=== PATIENT | female | born 1970 | race Caucasian/White ===

== ENCOUNTER 2020-02-25 00:23 | Emergency (ER) | payer MEDICAID, SELFPAY ==
[2020-02-25 00:59] VITALS: BP 168/93; PULSE 92; RESP 18; TEMP 36.8; O2SAT 99; BMI 29.2
--- NOTE | 2020-02-25 01:31 | ED.DENTAL ---
HPI - Dental/Oral General Chief complaint: Dental/Oral Stated complaint: abscess Time Seen by Provider: 02/25/20 01:31 History of Present Illness HPI Narrative: patient complaining of 3 day swelling to the left lower jaw. There is no fever no chills. There is no difficulty speaking. No difficulty swallowing. No change in voice. Patient from home. Patient was given antibiotics by her dentist. Attempted at Duy the abscess to no avail. Patient came in because the pain continue. The swelling is unchanged. Duration: constant Severity: moderate Severity scale (1-10): 9 Relieving factors: nothing Exacerbating factors: nothing Related Data Previous Rx's Medication Instructions Recorded oxycodone-acetaminophen [Percocet] 1 tab PO Q6H PRN #7 tab 02/25/20 Allergies Allergy/AdvReac Type Severity Reaction Status Date / Time No Known Allergies Allergy Verified 02/25/20 01:05 Review of Systems Review of Systems: Constitutional: No Weight loss, No Fever, No Chills, No Night Sweats, No Fatigue, No Malaise ENT/Mouth: No Hearing loss, No Ear Pain, No Nasal Congestion, No Sinus Pain, No Hoarseness, No sore throat, No Rhinorrhea, No Swallowing Difficulty Eyes: No Eye Pain, No Swelling, No Redness, No Foreign Body, No Discharge, No Vision Changes Cardiovascular: No Chest Pain, No SOB, No Dyspnea on Exertion, No Orthopnea, No Edema, No Palpitations Respiratory: No Cough, No Sputum, No Wheezing, No Smoke Exposure, No Dyspnea Gastrointestinal: No Nausea, No Vomiting, No Diarrhea, No Constipation, No abdominal Pain, No Hematochezia, No Melena Genitourinary: no irregular bleeding, No Dysuria, No Urinary Frequency, No Hematuria, No Urinary Incontinence, No Urgency, No Flank Pain, No Urinary Flow Changes, No Hesitancy Musculoskeletal: No joint pain, No Myalgias, No Joint Swelling Skin: No Skin Lesions, No rash Neuro: No Weakness, No Numbness, No Paresthesias, No Loss of Consciousness, No Dizziness, No Headache Psych: No Anxiety/Panic, No Depression, No SI/HI/AH/VH, No Social Issues, Heme/Lymph: No Bruising, No Bleeding,No Lymphadenopathy Endocrine: No Polyuria, No Polydipsia, No Temperature Intolerance [facility] Past Medical History Medical History (Updated 02/25/20 @ 01:36 by Julee Vargas MD) Fibromyalgia Meningioma Thalassemia Physical Exam Vital Signs: Vital Signs: Vital Signs Temp Pulse Resp BP Pulse Ox 02/25/20 00:59 98.3 F 92 18 168/93 H 99 Body Mass Index 29.2 Appearance: Alert. Oriented X3. No acute distress. Eyes: Pupils equal, round and reactive to light. ENT: Pharynx normal , there is swelling next to the left lower jaw with fluctuance palpable. There is no swelling or tenderness in the soft palate. There is no erythema posteriorly. Tonsils are not enlarged. Posterior pharynx is normal. Patient speak with normal voice. Trachea is midline.. Neck: Normal inspection. Neck supple. No lymph nodes noted. No crepitus CVS: Normal heart rate and rhythm. Pulses normal. Normal S1 and S2 Respiratory: No respiratory distress. Breath sounds normal. No Wheezing. No rales Abdomen: Soft and nontender. No rigidity. No distention. good BS x4 Skin: Skin warm and dry. Normal skin color. Normal skin turgor. Extremities: No lower extremity edema. Neurovascular intact to all extremities. No Lacerations. No Rash Neuro: Oriented X 3. No motor deficit. No sensory deficit. Moving all extermities. No slurred speech MDM - Dental/Oral MDM Narrative Medical decision making narrative: Question dental abscess will give pain medication. Attempted to drain with 18 gauge needle to no avail. Will have patient follow-up with Dentistry on an outpatient basis. Currently in stable condition. There is no change in voice patient is able to swallow. Is already on antibiotic for 2 days. Differential Diagnosis Differential diagnosis: Likely dental abscess Lab Data Attestation: I reviewed the patient's lab results. Discharge Plan Discharge Clinical Impression: Dental abscess Patient Disposition: Home, Self-Care Instructions: Dental Abscess (ED) Additional Instructions: Thank you for visiting the emergency department today. If your symptoms worsen or do not resolve completely please return to the emergency department immediately or call 911. if he have any questions please call your primary care physician Prescriptions: New oxycodone-acetaminophen [Percocet] 5-325 mg tablet 1 tab PO Q6H PRN (Reason: pain) Qty: 7 RF: 0 Referrals: your, dentist [Other] - 2 days
[2020-02-25] MEDS: HYDROcodone Bit/Acetam 5/325 TABLET 1 TAB PO (01:53)
== END 2020-02-25 01:57 | disposition home or self-care (01) ==
LOC: HO.ED 01:51
PROVIDERS: Emergency Provider Emergency Medicine Emergency Medical Services; PCP Internal Medicine
DX: K04.7 Periapical abscess without sinus (principal)
CPT/HCPCS: 41800; 99283

== ENCOUNTER → 2021-04-04 12:57 | Outpatient (REF) | payer MEDICAID, SELFPAY ==
--- NOTE | 2021-04-04 13:04 | ECG_ITS ---
Hook-up date: 2021-04-04 13:15:00 Duration: 47:59:00 Test Indications: R55 SYNCOPE Medications: [id number] QRS complexes * Ventricular ectopics which represent % of total QRS comp. 39 Supraventricular ectopics which represent <1 % of total QRS comp. * Paced QRS complexs which represent % of total QRS comp. VENTRICULAR ECTOPY * Isolated * Bigeminal Cycles * Couplets * Runs * Beats in Runs * Beats LONGEST at * BPM at :: -- * Beats FASTEST at * BPM at :: -- SUPRAVENTRICULAR ECTOPY 39 Isolated 0 Couplets 0 Runs 0 Beats in Runs * Beats LONGEST at * BPM at :: -- * Beats FASTEST at * BPM at :: -- HEART RATES 60 MIN at 04:13:52 2021-04-05 85 AVG 131 MAX at 13:28:17 2021-04-04 LONGEST RR 1.0400 secs at 04:13:50 2021-04-05 S-T LEVELS Channel 1 - 128 mm at 13:15:00 2021-04-04 - 128 mm at 13:15:00 2021-04-04 Channel 2 - 128 mm at 13:15:00 2021-04-04 - 128 mm at 13:15:00 2021-04-04 Channel 3 - 128 mm at 03:23:41 -- - 128 mm at 03:23:41 Underlying rhtyhm is sinus. Average ventricular rate 85/min; range 60-131/min. Very rare supraventricular ectopy. No sustained arrhythmias. No significant pauses. No events in patient diary. Referred By: César Gomez Overread By: MARY WALDRON
== END ==
LOC: HO.CARD 12:57
PROVIDERS: Visit Provider Psychiatry & Neurology Neurology
DX: R55 Syncope and collapse (principal)
CPT/HCPCS: 93226

== ENCOUNTER 2021-05-29 12:45 | Outpatient (REF) | payer MEDICAID, SELFPAY ==
--- NOTE | 2021-05-29 12:45 | EEG_ITS ---
FINDINGS: The waking background activity consists of a well-defined posterior 10 to 11 hertz alpha frequency, intermixed anteriorly with low-voltage fast frequencies. Drowsiness is characterized by diffuse theta slowing. During sleep stages 1 through 4 sleep are noted with symmetrical frontal central sleep spindles and vertex sharp transients and delta sleep. Arousals are unremarkable. The patient remains asymptomatic. No focal, lateralizing, or paroxysmal discharges seen. IMPRESSION: This 24-hour ambulatory EEG is within normal limits. MD BERNABE Valencia/CHUCK / [phone]
== END 2021-05-29 12:46 | disposition home or self-care (01) ==
LOC: HO.NEURO 12:45
PROVIDERS: Visit Provider Psychiatry & Neurology Neurology
DX: R55 Syncope and collapse (principal)
CPT/HCPCS: 95708

== ENCOUNTER 2023-03-29 19:51 | Emergency (ER) | payer OTHER, SELFPAY ==
--- NOTE | ~2023-03-29 | XR_ITS ---
EXAMINATION: XR CHEST 2 VIEWS CLINICAL INFORMATION: Chest pain. COMPARISON: None available. TECHNIQUE: Frontal and lateral views of the chest were obtained. FINDINGS: The heart, great vessels, pulmonary vasculature and mediastinum are normal. The lungs show no focal infiltrate, effusion or pneumothorax. There is a tiny focus of linear scar/subsegmental atelectasis at the lateral left base. There is no acute osseous abnormality. There are upper abdominal surgical clips. XR/XR chest 2V IMPRESSION: 1. No focal infiltrate or congestive heart failure is seen. 2. There is a tiny focus of linear scar/subsegmental atelectasis at the lateral left base.
--- NOTE | 2023-03-29 19:53 | ED.GENADULT ---
HPI - General Adult General Chief complaint: Chest Pain Stated complaint: shoulder and chest pain , high BP Time Seen by Provider: 03/29/23 21:05 Source: patient Mode of arrival: ambulatory Limitations: no limitations History of Present Illness HPI narrative: Patient with no significant cardiac history in the past with history of pre diabetes and fibromyalgia, normal blood pressure comes here for 1 week of chest pain which is localized to left side and left arm and upper back patient dull lasting only for few minutes no chest pain during the sleep was seen at urgent care center and sent here on arrival patient is still complaining of chest pain which is going on for 1 week but without any significant distress saturating 100% on room air. Blood pressure on arrival was 160/87 with pulse rate of 77 repeat blood pressure was 148/89 Related Data Previous Rx's Medication Instructions Recorded oxycodone-acetaminophen 5 mg-325 1 tab PO Q6H PRN pain #7 tabs 02/25/20 mg tablet (Percocet) Allergies Allergy/AdvReac Type Severity Reaction Status Date / Time No Known Allergies Allergy Verified 02/25/20 01:05 Review of Systems Review of Systems: Yes all other systems are reviewed and are negative [facility] Past Medical History Medical History Thalassemia Fibromyalgia Meningioma Social History Social History Alcohol intake: never Smoked in Last 30 Days: Yes Use of substances other than those prescribed or required for medical reasons: No Advance Directives: No Advance Directives Information Provided: No Patient : No Physical Exam ED Vital Signs: Vital Signs - 24 hr 03/29/23 19:54 03/29/23 21:30 03/29/23 22:13 Temperature 97.7 F Pulse Rate 77 75 74 Respiratory Rate 18 11 L 17 Blood Pressure 160/87 H 157/92 H 148/89 H Pulse Oximetry 99 98 100 Oxygen Delivery Method Room Air Room Air Room Air BMI result Body Mass Index 28.8 Appearance: Alert. Oriented X3. No acute distress. Eyes: No pallor or icterus ENT: Pharynx normal. Oral Mucosa moist Neck: Normal inspection. Neck supple. CVS: Normal heart rate and rhythm. Pulses normal. No murmur or rub Respiratory: No respiratory distress. Equal air entry bilateral, no wheezing/rales/rhonchi left chest wall tenderness++ at 2nd intercostal space Abdomen: Soft and nontender. Bowel sounds are present, no mass palpable, no CVA tenderness Skin: Skin warm and dry. Normal skin color. Normal skin turgor. Extremities: No lower extremity edema. No calf tenderness Neuro: Oriented X 3. No motor deficit. Course Course Course Narrative: RME performed by Shala Guevara PA-C. Patient is a 52 year old assigned female at presenting to the emergency department with shoulder and left chest pain. Patient was seen at an urgent care earlier who called and informed me that the patient's EKG there showed a prolonged QT interval. Labs, imaging, and swabs ordered. Patient placed back in the waiting room pending room availability and results. Medications Administered Discontinued Medications Generic Name Dose Route Start Last Admin Trade Name Freq PRN Reason Stop Dose Admin Tramadol HCl 50 mg 03/29/23 21:48 03/29/23 22:00 Tramadol Hcl 50 Mg Tablet PO 03/29/23 21:49 Not Given ONCE ONE Medical Decision Making Medical Decision Making [facility] Narrative: Patient with atypical chest pain reproducible on palpation likely costochondritis with history of fibromyalgia and high sensitive troponin negative normal EKG low risk for PE discharge patient home on tramadol Differential Diagnosis Differential Diagnoses: The differential diagnosis associated with the presentation includes Musculoskeletal pain/costochondritis/ACS/pleural Admission/Observation Consideration of admission/observation: Escalation of care including admission/observation considered Lab Data [facility] Lab Attestation statement: I reviewed the patient's lab results. 03/29/23 20:08 03/29/23 20:08 Labs: Lab Results 03/29/23 Range/Units 20:08 WBC 7.1 (4.8-10.8) X10*3/uL RBC 5.83 H (4.20-5.50) X10*6/uL Hgb 11.2 L (12.0-16.0) g/dl Hct 36.6 L (37.0-47.0) % MCV 62.8 L (80.0-98.0) fL MCH 19.2 L (27.0-33.0) pg MCHC 30.6 L (31.0-35.0) g/dl RDW 15.9 (11.0-16.0) % Plt Count 391 (160-400) X10*3/uL MPV 9.9 (9.4-12.3) fL Immature Gran % (Auto) 0.3 (0.0-0.4) % Neut % (Auto) 62.6 (45-73) % Lymph % (Auto) 29.5 (20-40) % Rabun % (Auto) 4.5 (2-11) % Eos % (Auto) 2.0 (0-4) % Baso % (Auto) 1.1 (0-2) % Lymph # (Auto) 2.1 (1.2-4.9) X10*3/uL Rabun # (Auto) 0.3 (0.1-1.2) X10*3/uL Eos # (Auto) 0.1 (0.0-0.4) X10*3/uL Baso # (Auto) 0.1 (0.0-0.2) X10*3/uL Abs Immat Gran (auto) 0.02 (0.00-0.03) X10*3/uL Absolute Neuts (auto) 4.4 (2.0-8.3) x10*3/uL Absolute Nucleated RBC 0.000 (0.0-0.012) X10*3/uL Nucleated RBC % (auto) 0.0 (0.0-0.2) /100WBC PT 11.0 L (11.1-13.3) SEC INR 0.9 (0.9-1.1) APTT 31.3 (26.0-36.4) SEC Sodium 138 (135-145) mmol/L Potassium 3.6 (3.3-5.1) mmol/L Chloride 102 (96-108) mmol/L Carbon Dioxide 26 (22-29) mmol/L Anion Gap 14 (12-20) BUN 15 (9-16) mg/dL Creatinine 0.77 (0.5-1.4) mg/dL Estim Creat Clear Calc 91.7 Estimated GFR > 60 Random Glucose 170 H (60-115) mg/dL Calcium 9.2 (8.4-10.2) mg/dL Magnesium 1.8 (1.6-2.6) mg/dL Total Bilirubin 0.3 (0.0-1.0) mg/dL AST 14 (5-31) U/L ALT 9 (0-31) U/L Alkaline Phosphatase 81 (39-117) U/L Troponin I High Sens < 2.7 (<3.5-17.0) ng/L Total Protein 7.7 (6.5-8.0) g/dL Albumin 4.3 (3.5-5.0) g/dL Influenza Type A (PCR) NEGATIVE (Negative) Influenza Type B (PCR) NEGATIVE (Negative) RSV RNA Qual (PCR) NEGATIVE (Negative) SARS-CoV-2 RNA (RT-PCR) NEGATIVE (Negative) Independent Interpretation I performed an independent interpretation of an: EKG and Plain X-Ray Interpretation: Number sinus rhythm 175 beats per minute normal intervals normal axis no acute ST-T changes no acute ischemia Discharge Plan Discharge Clinical Impression: Atypical chest pain, Borderline blood pressure Patient Disposition: Home, Self-Care Instructions: Hypertension (ED), Noncardiac Chest Pain (ED) Additional Instructions: Decrease salt and caffeine intake and exercise as advised Check blood pressure 2 times a day Your chest pain is likely musculoskeletal with history of fibromyalgia Take pain medication as prescribed and follow-up with PCP Normal blood pressure should be less than 135/85 Prescriptions: No Action oxycodone-acetaminophen [Percocet] 5-325 mg tablet 1 tab PO Q6H PRN (Reason: pain) Qty: 7 0RF Interventions: ED Discharge Assessment Last Done: 03/29/23 22:36 Discharge Date/Time: 03/29/23 22:38
[2023-03-29 19:54] VITALS: BP 160/87; PULSE 77; RESP 18; TEMP 36.5; O2SAT 99; BMI 28.8
--- NOTE | 2023-03-29 19:54 | ECG_ITS ---
Test Reason : chest pain Blood Pressure : / mmHG Vent. Rate : 075 BPM Atrial Rate : 075 BPM P-R Int : 138 ms QRS Dur : 076 ms QT Int : 390 ms P-R-T Axes : 037 -14 066 degrees QTc Int : 435 ms Normal sinus rhythm Normal ECG No previous ECGs available Referred By: Shala Guevara Electronically Signed By:RAS OROZCO MD
[2023-03-29 20:14] LABS: MANUAL DIFF FLAG NO
[2023-03-29 20:20] LABS: INTERNATIONAL NORM RATIO 0.9 (0.9-1.1)
[2023-03-29 20:23] LABS: Partial Thromboplastin Time 31.3 SEC (26.0-36.4)
[2023-03-29 20:28] LABS: Alanine Aminotransferase 9 U/L (0-31); Albumin Level 4.3 g/dL (3.5-5.0); Alkaline Phosphatase 81 U/L (39-117); Anion Gap 14 (12-20); Aspartate Amino Transferase 14 U/L (5-31); Bilirubin Total 0.3 mg/dL (0.0-1.0); Blood Urea Nitrogen 15 mg/dL (9-16); Calcium 9.2 mg/dL (8.4-10.2); Carbon Dioxide 26 mmol/L (22-29); Chloride 102 mmol/L (96-108); Creatinine Clr Calc Pharmacy 91.7; Estimated Glomerular Filt Rate > 60; Glucose Random 170 mg/dL (60-115); Magnesium 1.8 mg/dL (1.6-2.6); Potassium 3.6 mmol/L (3.3-5.1); Sodium 138 mmol/L (135-145); Total Protein 7.7 g/dL (6.5-8.0)
[2023-03-29 20:34] LABS: Basophils Absolute Auto 0.1 X10*3/uL (0.0-0.2); Basophils Percent Auto 1.1 % (0-2); Eosinophils Absolute Auto 0.1 X10*3/uL (0.0-0.4); Hematocrit 36.6 % (37.0-47.0); Hemoglobin 11.2 g/dl (12.0-16.0); Imm Gran Abs Auto 0.02 X10*3/uL (0.00-0.03); Imm Gran Pct Auto 0.3 % (0.0-0.4); Lymphocytes Absolute Auto 2.1 X10*3/uL (1.2-4.9); Lymphocytes Percent Auto 29.5 % (20-40); Mean Corpuscular HGB Conc 30.6 g/dl (31.0-35.0); Mean Corpuscular Hemoglobin 19.2 pg (27.0-33.0); Mean Platelet Volume 9.9 fL (9.4-12.3); Monocytes Absolute Auto 0.3 X10*3/uL (0.1-1.2); Monocytes Percent Auto 4.5 % (2-11); Neutrophils Absolute Auto 4.4 x10*3/uL (2.0-8.3); Neutrophils Percent Auto 62.6 % (45-73); Platelet Count 391 X10*3/uL (160-400); Red Blood Count 5.83 X10*6/uL (4.20-5.50); Red Cell Distribution Width 15.9 % (11.0-16.0); White Blood Count 7.1 X10*3/uL (4.8-10.8)
[2023-03-29 20:36] LABS: Troponin-I High Sensitivity < 2.7 ng/L (<3.5-17.0)
[2023-03-29 20:51] LABS: Influenza A PCR NEGATIVE (Negative); Influenza B PCR NEGATIVE (Negative); Resp Syncy Virus RNA Qual PCR NEGATIVE (Negative); SARS COV2 PCR INHOUSE NEGATIVE (Negative)
[2023-03-29 21:09] LABS: Mean Corpuscular Volume 62.8 fL (80.0-98.0)
--- NOTE | 2023-03-29 21:09 | PC.NURSE ---
this rn assumed care of pt from waiting room at 2100. pt calm and cooperative. pt placed on monitoring tech. awaiting to be seen by ed provider
--- NOTE | 2023-03-29 21:15 | PC.NURSE ---
This RN, provider and tech attempted to walk pt and assess 02 status, pt stating in the the 80's on 3 liter of oxygen. pt placed back on bed side monitor. Andrey Mosher notified.
[2023-03-29 21:30] VITALS: BP 157/92; PULSE 75; RESP 11; O2SAT 98
--- NOTE | 2023-03-29 22:00 | PC.NURSE ---
this rn attempted to medicate pt with 50mg po tramadol. pt refused states does not like tramadol. this rn made dr izquierdo aware
[2023-03-29 22:13] VITALS: BP 148/89; PULSE 74; RESP 17; O2SAT 100
--- NOTE | 2023-03-29 22:31 | PC.NURSE ---
reviewed discharge instructions pt, pt verbalized understanding, no sob or chest a pain. Notified RN.
== END 2023-03-29 22:38 | disposition home or self-care (01) ==
PROVIDERS: Physician Assistant Medical; Emergency Provider Internal Medicine; PCP Internal Medicine
DX: R07.89 Other chest pain (principal); R03.0 Elevated blood-pressure reading, without diagnosis of hypertension; M25.512 Pain in left shoulder; M79.7 Fibromyalgia; R73.03 Prediabetes; F17.200 Nicotine dependence, unspecified, uncomplicated; Z20.822 Contact with and (suspected) exposure to COVID-19; Z20.828 Contact with and (suspected) exposure to other viral communicable diseases
CPT/HCPCS: 0241U; 71046; 80053; 83735; 84484; 85025; 85610; 85730; 93005; 99283; 99285

== ENCOUNTER 2025-02-21 12:26 | Outpatient (AMB) | payer OTHER, SELFPAY ==
--- NOTE | 2025-02-21 13:16 | A.OFFVIS_ITS ---
Intake Visit Reasons: 6m CDD Allergies No Known Allergies Allergy (Verified 02/25/20 01:05) Medication List - Last Reconciled 02/21/25 by César Gomez MD amitriptyline 100 mg PO BEDTIME esomeprazole magnesium 20 mg PO DAILY losartan 25 mg PO DAILY metformin ER 500 mg PO BID naproxen 500 mg PO BID PRN oxycodone-acetaminophen 5-325 mg (Percocet) 1 tab PO Q6H PRN zolpidem 10 mg PO BEDTIME PRN HPI Comments Details: She has been getting more frequent headaches about 3 times a week mostly in the left parietal area. She also complains of numbness in her fingers and toes. No further syncopal episodes. Working a second job on line. Was travelling ?to [place] and [place] and [place] and [place] for 3 months. Sleeping well. Had an MRI at [facility] for meningioma follow up. 3 syncopal episodes after smoking hookah each time. This time 4 minutes of unresponsiveness. Spends a lot of time on the computer and has neck pain and tightness and increased LANDON. Also has some sinus Sx in last few days. Right buttock pain to right knee. Had an epidural injection for back pain. Takes B12 injection. Has a combo pill from [place] for prn use. She has a six-year history of headaches occurring every day or every other day for which she takes wjcq-sqp-etgodcr medication called Relief, which is a combination of diclofenac 50 mg, paracetamol 325, magnesium and an antihistamine. MRI shows incidental finding of midline, 9 mm olfactory groove meningioma. She has had some neck pain and neck injury in the past. [facility] Medical History (Updated 02/21/25 @ 13:29 by César Gomez MD) Cervical disc disease Sciatica Tension headache Thalassemia Fibromyalgia Meningioma Social History Alcohol intake: never Review of Systems Const Details: Sleep:? Difficulty getting to sleepadmits.? Difficulty maintaining sleepdenies?.? Urge to move legsdenies.? Teeth grindingdenies.? Shouting or Kicking during sleep denies.? Abnormal behavior during sleepdenies.? Excessive sleepdenies.? Snoring denies.? Daytime sleepinessdenies. ???General/Constitutional:? Change in appetitedenies.? Chillsdenies.? Fatigueadmits.? Feverdenies.? Weight gaindenies.? Weight lossdenies. ???Ophthalmologic:? Blurred visiondenies.? Diminished visual acuitydenies. ???ENT:? Stuffinessdenies.? Decreased hearingdenies.? Dry mouthdenies.? Ear paindenies.? Nosebleeddenies.? Ringing in the earsdenies.? Sinus paindenies.? Sore throat denies.? Swollen glandsdenies. ???Endocrine:? Cold intolerancedenies.? Excessive thirstdenies.? Frequent urinationdenies.? Heat intolerancedenies. ???Respiratory:? Shortness of breathdenies.? Chest paindenies.? Coughdenies. ???Breast:? Breast lumpdenies.? Nipple dischargedenies. ???Cardiovascular:? Chest pain at restdenies.? Chest pain with exertiondenies.? Claudicationdenies .? Dizzinessdenies.? Fluid accumulation in the legsdenies.? Irregular heartbeat denies.? Palpitationsdenies. ???Gastrointestinal:? Abdominal paindenies.? Constipationdenies.? Diarrheadenies.? Difficulty swallowingdenies.? Heartburnadmits.? Nauseadenies.? Rectal bleedingdenies. ???Hematology:? Easy bruisingdenies.? Prolonged bleedingdenies. ???Genitourinary:? Frequent urinationdenies.? Urgencydenies.? Incontinencedenies.? Erectile Dysfunctiondenies. ???Musculoskeletal:? Neck painadmits.? Back painadmits.? Muscle achesdenies.? Painful jointsdenies.? Sciaticadenies.? Weaknessdenies. ???Podiatric:? Difficulty walkingdenies.? Foot numbnessdenies. ???Neurologic:? Difficulty swallowingdenies.? Balance difficultydenies.? Coordinationnormal.? Difficulty speakingdenies.? Dizzinessdenies.? Faintingdenies.? Gait abnormality denies.? Headacheadmits.? Loss of strengthdenies.? Loss of use of extremity denies.? Low back paindenies.? Memory lossdenies.? Seizuresdenies.? Ticsdenies.? Tingling/Numbnessdenies.? Transient loss of visiondenies.? Tremordenies. ???Psychiatric:? Anxietydenies.? Auditory/visual hallucinationsdenies.? Delusionsdenies.? Depressed mooddenies.? Stressorsdenies.? Substance abusedenies.? Suicidal thoughtsdenies. Physical Exam Neuro Other: Neurological: Abnormal neurological findings:??none.?Mental Status:??alert and oriented X 3,?Normal attention, orientation, memory and affect.?Cranial Nerves:??Pupils are equal, round and reactive to light. Fundoscopy shows normal disc bilaterally. External occular muscles are intact. Visual mccormack are full, no ptosis. Face is symmetrical, no facial weakness or droop. Facial sensations are normal. Tongue protrudes in midline. Palate elevates symmetrically. Shoulder shrugging is normal..?Motor Examination:??Normal muscle tone, bulk and strength,?No atrophy or fasciculations,?No drift of the extended upper extremities,?Deep tendon reflexes are 2+?,?Plantars are flexor?.?Straight Leg Raising:??90 degrees.?Sensory Exam:??Normal light touch, temperature, pinprick, vibration and joint-position sensations?,?Rhomberg sign is absent.?Coordination:??no ataxia,?no titubation,?vkqxev-lq-iooo, lyux-eycb-dldy test and rapid alternating movements were normal.?Gait Exam:??Within normal limits.?Cerebellar Signs:??Mkvulq-hc-hzpx and bawy-tc-osrm is normal,?no dysdiadochokinesia? .?Extrapyramidal System:??No tremor, rigidity with normal facial expressions,?No bradykinesia, no bradyphrenia. Normal arm swing and posture. No propulsion or retropulsion.?Speech:??Normal,?no dysphasia or dysarthria..? Mini Mental Status Exam: Level of Consciousness:??Alert.?Orientation:??Knows correct year, month, date, day and season,?Knows correct city, county and state. Knows correct location and floor.?Registration:??Able to register 3 objects.?Attention:??Serial 7's performed accurately.?Recall:??Able to recall 3 out of 3 objects.?Language:??Normal spontaneous speech, fluency, repetition,naming, comprehension, reading and writing.?Total Score:??30/30.? General Examination: GENERAL APPEARANCE:??normal,?in no acute dist ress.?HEAD:??normocephalic,?atraumatic.?EYES:??sclera non-icteric,?conjunctiva clear.?EARS:??auditory canal clear,?tympanic membrane intact, clear.?NOSE:??no lesions.?ORAL CAVITY:??gums normal,?mucosa moist,?no lesions.?THROAT:??clear.?NECK/THYROID:??no cervical lymphadenopathy,?thyroid normal,?neck supple, full range of motion,?no carotid bruit.?SKIN:??no rashes,?no significant birthmarks.?HEART:??S1, S2 normal,?no murmurs.?LUNGS:??clear anteriorly and posteriorly.?CHEST:??no gross rib deformity,?clear to auscultation.?BACK:??normal exam of spine.?EXTREMITIES:??no edema.?PERIPHERAL PULSES:??normal.?PSYCH:??alert, oriented,?cognitive function intact,?cooperative with exam.? Assessment & Plan Assessment & Plan (1) Meningioma: Comment: 03/20/21 EEG WNL 04/25/22 MRI shows unchanged 9mm meningioma. Code(s): D32.9 - Benign neoplasm of meninges, unspecified Category: Medical (2) Tension headache: Code(s): G44.209 - Tension-type headache, unspecified, not intractable Category: Medical Plan Continue current meds. F/U MRI for meningioma Orders: Orders MR head/brain wo/w con 3 Weeks D32.9 - Benign neoplasm of meninges, unspecified Medications: New amitriptyline 100 mg PO BEDTIME 90 tabs 3RF 90 days zolpidem 10 mg PO BEDTIME PRN 30 tabs 1RF insomnia 30 days Coding Level of Care Code Est Pt Level 4 (94710) Diagnoses Meningioma D32.9 Tension headache G44.209
== END 2025-02-21 14:55 | disposition home or self-care (01) ==
LOC: HO.HSM 12:26
PROVIDERS: PCP Internal Medicine; Referring Provider Internal Medicine; Visit Provider Psychiatry & Neurology Neurology
DX: D32.9 Benign neoplasm of meninges, unspecified (principal); G44.209 Tension-type headache, unspecified, not intractable
CPT/HCPCS: 99214

== ENCOUNTER → 2025-02-21 12:26 | Outpatient (BNVA) | payer OTHER, SELFPAY | PROVIDERS: PCP Internal Medicine; Referring Provider Internal Medicine; Visit Provider Psychiatry & Neurology Neurology | DX: G44.209 Tension-type headache, unspecified, not intractable (principal); D32.9 Benign neoplasm of meninges, unspecified | CPT/HCPCS: 99212 ==

== ENCOUNTER 2025-03-13 08:54 | Outpatient (REF) | payer OTHER, SELFPAY ==
--- NOTE | ~2025-03-13 | MR_ITS ---
CLINICAL HISTORY: D32.9 - Benign neoplasm of meninges, unspecified MR Brain with and without gadolinium Comparison: None provided Findings: No restricted diffusion. No intra-axial mass or hemorrhage. No midline shift. No hydrocephalus. Vascular flow voids are intact. There is a 9 mm rounded benign-appearing extra-axial lesion visualized along the midline in the planum sphenoidale, axial image 11, series 17, and coronal image 27, series 18. There is no abnormal meningeal enhancement. There are no vascular malformations. Orbital contents are unremarkable. The sinuses and mastoid air cells are clear. No focal bone lesion. IMPRESSION: Nearly 9 mm enhancing extra-axial lesion visualized along the planum sphenoidale, with imaging features most compatible with meningioma. No priors for comparison. The examination is otherwise unremarkable. This document has been electronically signed by: Pedrito Aguilar MD on 03/14/2025 09:37:36
--- OUTSIDE RECORDS SUMMARY | 2025-03-13 09:45 | XMS_ITS | Clinical Summary ---
Author Organization [facility] Address [address] [place] [address] Care Team Providers Care Field Artillery Officer Name Role Phone Unavailable Primary Care Provider Unavailabl e Allergies No known active allergies Medications Medication Sig Dispensed Refills Start Date End Date Status acetaminophen (TYLENOL) 325 MG tablet Take 2 tablets (650 mg total) by mouth every 6 (six) hours as needed for pain. 30 tablet 0 03/10/2015 Active ibuprofen (ADVIL,MOTRIN) 600 MG tablet Take 1 tablet (600 mg total) by mouth every 8 (eight) hours as needed for pain. 30 tablet 0 03/10/2015 Active cyclobenzaprine (FLEXERIL) 10 MG tablet Take 1 tablet (10 mg total) by mouth 3 (three) times a day as needed for muscle spasms. 15 tablet 0 03/10/2015 Active Social History Tobacco Use Types Packs/Day Years Used Date Smoking Tobacco: Never Assessed Sex and Gender Information Value Date Recorded Sex Assigned at Not on file Gender Identity Not on file Sexual Orientation Not on file Last Filed Vital Signs Vital Sign Reading Time Taken Comments Blood Pressure 136/79 03/10/2015 3:58 AM EDT Pulse 78 03/10/2015 3:58 AM EDT Temperature 36.7 C (98 F) 03/10/2015 3:58 AM EDT Respiratory Rate 16 03/10/2015 3:58 AM EDT Oxygen Saturation 100% 03/10/2015 3:58 AM EDT Inhaled Oxygen Concentration - - Weight - - Height - - Body Mass Index - - Plan of Treatment Health Maintenance Due Date Last Done Comments Hepatitis B Vaccines (1 of 3 - 3-dose series) 1970 Hepatitis C Screening 1970 COVID-19 Vaccine (#1) 03/13/1971 Depression Screening 1982 Preventative Health Evaluation 1988 DTap / Tdap / Td (1 - Tdap) 1989 Cervical Cancer Screening (P ap Smear) 09/12/1991 Colon Cancer Screening (Colonoscopy) 09/12/2015 Breast Cancer Screening (Mammogram) 2020 Shingrix-Zoster Vaccine (1 of 2) 2020 Influenza Vaccine (#1) 2025 Pneumococcal Vaccine Aged Out No long er eligible based on patient's age to complete this topic RSV Ped < 20 months Aged Out No longe r eligible based on patient's age to complete this topic
--- OUTSIDE RECORDS SUMMARY | 2025-03-13 09:46 | XMS_ITS | Encounter Summary ---
Author Organization [facility] Address [address] [place] [id number] Phone Care Team Providers Care Studio Technician Name Role Phone Keturah De Guzman MD Primary Care Provider Unavailable Encounter Details Date Type Department Care Team (Late st Contact Info) Description 09/15/2018 Procedure Pass [facility] [address] [place] [address] Social History Tobacco Use Types Packs/Day Years Used Date Smoking Tobacco: Every Day Smokeless Tobacco: Never Comments:Hookah Comments Unknown Sex and Gender Information Value Date Recorded Sex Assigned at Not on file Legal Sex Female 11:13 AM EDT Gender Identity Not on file Sexual Orientation Not on file documented as of this encounter Plan of Treatment Not on file documented as of this encounter Visit Diagnoses Not on filedocumented in this encounter Care Teams Studio Technician Relationship Specialty Start Date End Date Keturah De Guzman MD PCP - General Internal Medicine 09/01/18 documented as of this encounter Additional Source Comments The information contained in this document represents components of the legal health record. It is not the complete legal health record.[facility]
--- OUTSIDE RECORDS SUMMARY | 2025-03-13 09:46 | XMS_ITS | Clinical Summary ---
Author Organization [facility] Address [address] [place] [id number] Phone Care Team Providers Care Paratransit Driver Name Role Phone Keturah De Guzman MD Primary Care Provider Unavailable Allergies No known active allergies Medications amitriptyline (ELAVIL) 25 MG tablet Take 50 mg by mouth nightly at bedtime. at bedtime. 0 08/30/2018 Active cetirizine (ZYRTEC) 10 MG tablet Take 10 mg by mouth daily. 0 08/30/2018 Active cholecalciferol (VITAMIN D3) 2,000 unit tablet 0 08/27/2018 Active FERRETTS 325 mg (106 mg iron) Tab 0 08/31/2018 Active omeprazole (PRILOSEC) 20 MG capsule 0 07/11/2018 Active gabapentin (NEURONTIN) 100 MG capsule Take 100 mg by mouth daily as needed. 0 08/30/2018 Active glucosam-chond- hyalu-CF borate (MOVE FREE JOINT HEALTH) 750 mg-100 mg- 1.65 mg-108 mg Tab Take by mouth. Active fluticasone propionate (FLONASE) 50 mcg/actuation nasal spray 1 spray by Nasal route daily. Active Family History Medical History Relation Comments Dementia Neg Hx Seizures Neg Hx Stroke Neg Hx Social History Tobacco Use Types Packs/Day Years Used Date Smoking Tobacco: Every Day Smokeless Tobacco: Never Comments:Hookah Education Answer Date Recorded Are you interested in more education? Not on daniel e 2022 Are you concerned about learning? Not on file 2022 No 2022 No 2022 Digital Access Answer Date Recorded No 10/10/2022 No 10/10/2022 No 10/10/2022 Reliable internet access at home? Not on file 10/10/2022 Device with a working camera? Not on file Comments Unknown Sex and Gender Information Value Date Recorded Sex Assigned at Not on file Legal Sex Female 11:13 AM EDT Gender Identity Not on file Sexual Orientation Not on file Last Filed Vital Signs Vital Sign Reading Time Taken Comments Blood Pressure 120/87 12/08/2018 12:48 PM EDT Pulse 72 12/08/2018 12:48 PM EDT Temperature 36.6 C (97.9 F) 12/08/2018 12:48 PM EDT Respiratory Rate 16 12/08/2018 12:48 PM EDT Oxygen Saturation 96% 12/08/2018 12:48 PM EDT Inhaled Oxygen Concentration - - Weight 79.4 kg (175 lb) 12/08/2018 12:48 PM EDT Height 161 cm (5' 3.39 ) 12/08/2018 12:48 PM EDT Body Mass Index 30.62 12/08/2018 12:48 PM EDT Plan of Treatment Health Maintenance Due Date Last Done Comments LIPID PANEL 1970 DEPRESSION SCREENING 1982 SMOKING Hx and SMOKELESS TOBACCO SCREENING 09/12/1983 HEPATITIS C SCREENING 1988 HIV ONE-TIME SCREENING (18-65 YEARS) 1988 PNEUMOCOCCAL VACCINES (50+ years) (1 of 2 - PCV) 1989 PAP SMEAR 09/12/1991 MAMMOGRAM 2010 COLOGUARD 09/12/2015 COLONOSCOPY 09/12/2015 COLORECTAL CANCER SCREENING 09/12/2015 FIT TEST 09/12/2015 FOBT 09/12/2015 SIGMOIDOSCOPY 09/12/2015 VIRTUAL COLONOSCOPY 09/12/2015 ZOSTER VACCINES (1 of 2) 2020 INFLUENZA VACCINE (#1) 2024 8, 05/13/2017, 06/18/2015, Additional history exists COVID-19 VACCINE ( - season) 2025 07/15/2020, 06/24/2020 Adult Td,Tdap Booster 06/18/2025 06/18/2015 , 02/22/2008, 01/25/2008 RSV VACCINE (1 - 1-dose 75+ series) 2045 HEPATITIS A VACCINES Aged Out 10/15/2008, 04/23/20 08 No longer eligible based on patient's age to complete this topic HIB VACCINES Aged Out No longer eligi ble based on patient's age to complete this topic MENINGOCOCCAL VACCINES (ACWY) Aged Out No longer eligible based on patient's age to complete this topic MENINGOCOCCAL VACCINES (B) Aged Out N o longer eligible based on patient's age to complete this topic Medical Devices Not on file Insurance PCC Care Teams Paratransit Driver Relationship Specialty Start Date End Date Keturah De Guzman MD PCP - General Internal Medicine 4/18/19 Additional Source Comments The information contained in this document represents components of the legal health record. It is not the complete legal health record.[facility]
--- OUTSIDE RECORDS SUMMARY | 2025-03-13 09:47 | XMS_ITS | Encounter Summary ---
Author Organization [facility] Address [address] [place] [phone] Phone Care Team Providers Care Brass Wind Instruments Tube Bender Name Role Phone Keturah De Guzman MD Primary Care Provider Unavailable Encounter Details Date Type Department Care Team (Late st Contact Info) Description 09/15/2018 Procedure Pass [facility] [address] [place] [address] Social History Tobacco Use Types Packs/Day Years [...] on filedocumented in this encounter Care Teams Brass Wind Instruments Tube Bender Relationship Specialty Start Date End Date Keturah De Guzman MD PCP - General Internal Medicine 09/01/18 documented as of this encounter Additional Source Comments The information contained in this document represents components of the legal health record. It is not the complete legal health record.[facility]
--- OUTSIDE RECORDS SUMMARY | 2025-03-13 09:47 | XMS_ITS | Encounter Summary ---
Author Organization [facility] Address [address] [place] [address] Phone Care Team Providers Care Masking Machine Operator Name Role Phone Keturah De Guzman MD Primary Care Provider Unavailable Encounter Details Date Type Department Care Team (Late st Contact Info) Description 10/11/2018 Procedure Pass [facility] [address] [place] [address] Social History Tobacco Use Types Packs/Day Years [...] on filedocumented in this encounter Care Teams Masking Machine Operator Relationship Specialty Start Date End Date Keturah De Guzman MD PCP - General Internal Medicine 09/01/18 documented as of this encounter Additional Source Comments The information contained in this document represents components of the legal health record. It is not the complete legal health record.[facility]
== END 2025-03-13 08:55 | disposition home or self-care (01) ==
LOC: HO.MRI 08:54
PROVIDERS: Visit Provider Psychiatry & Neurology Neurology
DX: D32.9 Benign neoplasm of meninges, unspecified (principal)
CPT/HCPCS: 70553; A9585

== ENCOUNTER → 2025-03-13 08:54 | Outpatient (BNV) | payer OTHER, SELFPAY | PROVIDERS: Visit Provider Radiology Diagnostic Radiology | DX: D32.9 Benign neoplasm of meninges, unspecified (principal) | CPT/HCPCS: 70553 ==